=== PATIENT | male | born 1955 | race Caucasian/White ===

== ENCOUNTER 2020-08-20 09:19 | Day surgery (SDC) | payer MEDICARE, SELFPAY ==
--- NOTE | 2020-08-18 13:51 | EKG12_ITS ---
Test Reason : PRE OP Blood Pressure : / mmHG Vent. Rate : 100 BPM Atrial Rate : 100 BPM P-R Int : 152 ms QRS Dur : 094 ms QT Int : 334 ms P-R-T Axes : 035 027 030 degrees QTc Int : 430 ms Normal sinus rhythm Normal ECG Confirmed by DAVID DELGADO, WALDEMAR ([id number]), loan expeditor MAX CENTENO ([id number]) on 08/19/2020 11:21:14 AM Referred By: Raad Pinon Confirmed By:WALDEMAR HERNANDEZ MD
[2020-08-18 14:57] LABS: Hematocrit 45.5 % (40-54); Hemoglobin 14.8 g/dL (13.0-16.5); Mean Corp Hgb Conc 32.5 g/dL (32-36); Mean Corpuscular Hgb 31.2 pg (27.0-32.0); Mean Corpuscular Volume 95.8 fL (80-94); Mean Platelet Vol. 9.6 fl (6.2-12.0); Platelet Count 235 K/mm3 (150-450); RBC Distribution Width CV 11.7 % (11.6-14.6); RBC Distribution Width SD 41.1 fl (35.1-43.9); Red Blood Count 4.75 M/mm3 (4.6-6.2); White Blood Count 8.3 K/mm3 (4.4-11.0)
[2020-08-18 15:13] LABS: Anion Gap 6 (5-15); BUN 12 mg/dL (7-18); BUN/Creat Ratio 10.8 RATIO (10-20); Calcium,Total 9.2 mg/dL (8.5-10.1); Chloride 102 mmol/L (98-107); Creatinine, Serum 1.11 mg/dL (0.70-1.30); EST Glomerular Filtration Rate 71 mL/min (>60); Est Glom Filt Rate - Afr Amer 86 mL/min (>60); Glucose 104 mg/dL (74-106); Potassium 3.4 mmol/L (3.5-5.1); Sodium Level 136 mmol/L (136-145)
[2020-08-20] VITALS (13 sets, daily range): BP systolic 100–129; BP diastolic 65–76; PULSE 76–90; RESP 16–20; TEMP 36.4–37.1; O2SAT 92–97; BMI 28.2
[2020-08-20] MEDS: Lactated Ringers 1,000 ML 100 ML IV ×2 (10:08→13:00)
--- NOTE | 2020-08-20 10:56 | PCM.HP.STD ---
Problem List (1) Urinary retention Status: Acute (2) Urinary retention due to benign prostatic hyperplasia Status: Acute History of Present Illness Date of Admission: 08/20/20 The patient is a 65 year old male who is on maximal medical therapy with Flomax and Proscar. Came into the office because he developed retention of urine despite being on maximal medical therapy had a Tyler catheter placed in the emergency room. On prior cystoscopy was found to have a large obstructive prostate I did not do a cystoscopy in the office prior to this procedure but given his history recommended that we proceed with a transurethral resection of the prostate also do a cystoscopy diagnostic before we do the surgery of the prostate. Past Medical History Allergies No Known Allergies Allergy (Verified 08/20/20 09:46) Home Medications: Ambulatory Orders Medication Instructions Recorded Cephalexin [Keflex] 500 mg PO TID 08/17/20 Finasteride [Proscar] 5 mg PO QHS 08/17/20 Lansoprazole [Prevacid] 30 mg PO DAILY PRN 08/17/20 Meloxicam [Mobic] 15 mg PO DAILY PRN 08/17/20 Tamsulosin HCl [Flomax] 2 tab PO DAILY 08/17/20 traZODone [Desyrel] 50 mg PO QHS PRN 08/17/20 Surgical History: no surgical history Smoking Status: Former smoker Review of Systems Constitutional: Denies: Chills, Fever, Weight Change HEENT: Denies: Head Aches, Sinus Congestion, Sinus Drainage Cardiovascular: Denies: Chest Pain, Palpitations Respiratory: Denies: Cough, Shortness of breath at rest, Sputum production Gastrointestinal: Denies: Abdominal Pain, Nausea, Vomiting Genitourinary: Denies: Dysuria Musculoskeletal: Denies: Joint Pain, Joint Tenderness Skin: Denies: Rash, Wounds Neurological: Denies: Numbness, Tingling, Focal weakness Psychiatric: Denies: Anxiety, Depression, Homicidal Ideations, Suicidal Ideations Hematologic/ Lymphatic: Denies: Easy Bruising, Easy Bleeding VTE Information - Inpt Only VTE Present on Admission: No - Physical Exam Vitals/I&O's: Vital Signs Temp Pulse Resp BP Pulse Ox 98.2 F 84 16 129/76 H 93 08/20/20 10:03 08/20/20 10:03 08/20/20 10:03 08/20/20 10:03 08/20/20 10:03 Oxygen Delivery Method Room Air Weight: 94.5 kg Body Mass Index (BMI) 28.2 General: Alert, Oriented x3, Cooperative HEENT: Atraumatic, PERRLA, EOMI, Normocephalic Neck: Supple, No JVD, Negative Carotid Bruits Lungs: Clear to auscultation, Normal air movement Cardiovascular: Regular rate, No murmurs Abdomen: Bowel Sounds Present, Soft, Non Tender Extremities: No edema, Capillary Refill Less than 3 Seconds Skin: No rashes, No breakdown Musculoskeletal: No Tenderness to Palpation of Joints or Extremities Neurological: Cranial nerves II-XII grossly intact Psych/Mental Status: Normal Affect, Appropriate Microbiology Past 72 Hours 08/18/20 14:06 Interface Orders SARS-CoV-2 Antigen (Rapid) - Final Current Medications Cefazolin Sodium 2 gm/ Sodium (Chloride) 110 mls @ 150 mls/hr IV PREOP ONE Stop: 08/20/20 13:03 Lactated Ringer's () 1,000 mls @ 100 mls/hr IV .Q10H ALEXEY Last Admin: 08/20/20 10:08 Dose: 100 mls/hr Documented by: Assessment/Plan All Active Problems Urinary retention (Acute) Urinary retention due to benign prostatic hyperplasia (Acute) Plan to proceed with transurethral resection of the prostate.
--- NOTE | 2020-08-20 11:07 | DCINST_ITS ---
Discharge Diet: Light diet - advance as tolerated Discharge Activity: May Not Drive Call your doctor if your incision/area has: Sudden Increased Bleeding Call your doctor if you observe: Fever of 101 or Higher Instructions: Transurethral Resection of the Prostate (TURP): Home Recovery Allergies/Adverse Reactions: Allergies No Known Allergies Allergy (Verified 08/20/20 09:46) Medications to take at Discharge Cephalexin [Keflex] 500 mg PO TID 08/17/20 Finasteride [Proscar] 5 mg PO QHS 08/17/20 Lansoprazole [Prevacid] 30 mg PO DAILY PRN 08/17/20 Meloxicam [Mobic] 15 mg PO DAILY PRN 08/17/20 Tamsulosin HCl [Flomax] 2 tab PO DAILY 08/17/20 traZODone [Desyrel] 50 mg PO QHS PRN 08/17/20 Primary Care Physician: Rell Adames DATA COMMUNICATIONS ENGINEER, DATA COMMUNICATIONS ENGINEER-C [Primary Care Provider] - Test Results: Test results from this visit will be discussed in further detail at your follow- up appointment, if applicable. Please Follow Up With: Raad Pinon MD When: in 2 weeks, please call to make an appointment.
[2020-08-20] MEDS: Cefazolin 2 GM in 0.9% Normal Saline 100 ML IV (11:10)
--- NOTE | 2020-08-20 11:42 | PCM.OPRPT ---
Problem List (1) Urinary retention Status: Acute (2) Urinary retention due to benign prostatic hyperplasia Status: Acute Report of Operation Date of Procedure: 08/20/20 Pre-Operative Diagnosis: BPH with obstruction and urinary retention Post-Operative Diagnosis: Same Surgery/Procedure Performed:: Cystoscopy transurethral resection of the prostate. Description of Surgical Findings:: 65-year-old male who I saw in the office because he had gone into retention of urine. He has been on medical therapy with Flomax and Proscar for a long time. After consultation with the patient we recommended we proceed with a transurethral resection of the prostate to try to restore normal voiding. Patient was taken back to the operating room after smooth induction of anesthesia he was placed in dorsolithotomy position the penis and testicles were prepped and draped in usual fashion went into the bladder with a 24 Ethiopian noncontinuous flow resectoscope went the entire length the urethra was normal, the prostatic verumontanum was identified, he had a very short prostate from the verumontanum into the bladder neck with some mild obstruction but surprisingly not very much. Inside the bladder there is some inflammation of the posterior wall from the catheter but no tumors are seen within the bladder, the trigone was normal the left and right ureters were normal. And then switched over to the button resectoscope and I smoothed out the channel way from the verumontanum into the bladder neck but again a very short distance and so had to be very careful and resecting the channel had a nice wide open channel from the verumontanum into the bladder neck this only took about 15 minutes to smooth it out since it was very minimal obstructive tissue surprisingly. After doing resection then no real specimen was obtained. I then did a flow test had a wide open flow sphincter looked intact and healthy. I then put a catheter in her bladder on continuous irrigation of the patient was taken back to PACU in good condition. Type of Anesthesia:: General Drains: [address] - Admit VTE Documentation VTE Present on Admission: No VTE Mechan Device Prophylaxis: SCD's
[2020-08-20] MEDS: Lidocaine 2% Jelly 1 APPLIC Tube TOPICAL (13:30)
[2020-08-20] MEDS: Ibuprofen 600 MG Tablet PO ×2 (13:58→22:53)
[2020-08-20] MEDS: 0.9% Normal Saline 1,000 ML 75 ML IV (14:18)
--- NOTE | 2020-08-20 18:45 | PCS.PANDOC ---
PANDEMIC DOCUMENTATION INITIATED: Date: 08/20/2020 Time: 6268
[2020-08-20] MEDS: Docusate Sodium 100 MG Capsule PO (21:23)
[2020-08-20] MEDS: Finasteride 5 MG Tablet PO (21:24)
[2020-08-20] MEDS: Ciprofloxacin 500 MG Tablet PO (21:24)
[2020-08-20] MEDS: Acetaminophen 325 MG Tablet PO (22:54)
[2020-08-21] MEDS: 0.9% Normal Saline 1,000 ML 75 ML IV (02:36)
[2020-08-21 03:50] VITALS: BP 113/70; PULSE 64; RESP 16; TEMP 36.6; O2SAT 96
--- NOTE | 2020-08-21 06:02 | NURSING ---
CBI clear with no clots, stopped at 0603.
[2020-08-21 06:22] VITALS: TEMP 37
[2020-08-21 08:30] VITALS: RESP 18
[2020-08-21 09:50] VITALS: BP 144/84; PULSE 81; RESP 18; TEMP 36.4; O2SAT 96
[2020-08-21 10:00] VITALS: BP 144/84; PULSE 81; RESP 18; TEMP 36.4; O2SAT 98
[2020-08-21] MEDS: Tamsulosin HCl 0.4 MG Capsule PO (10:47)
[2020-08-21] MEDS: Docusate Sodium 100 MG Capsule PO (10:47)
[2020-08-21] MEDS: Ciprofloxacin 500 MG Tablet PO (10:47)
[2020-08-21 15:23] VITALS: BP 137/80; PULSE 84; RESP 18; TEMP 36.8; O2SAT 98
== END 2020-08-21 14:25 | disposition home or self-care (01) ==
LOC: SDC 09:19 → AC 09:26 → MS3 13:13
PROVIDERS: Anesthesiology; PCP Nurse Practitioner Primary Care; Referring Provider Urology; Visit Provider Urology
PROC: (CPT 52601; principal; 2020-08-20 11:00)
DX: N40.1 Benign prostatic hyperplasia with lower urinary tract symptoms (principal); R33.8 Other retention of urine; Z79.1 Long term (current) use of non-steroidal anti-inflammatories (NSAID); Z87.891 Personal history of nicotine dependence
CPT/HCPCS: 00914; 52601; 36415; 80048; 85027; 87426; 93005; C9803; J7030; J7120; J2405

== ENCOUNTER → 2020-11-12 10:04 | Outpatient (CLI) | payer MEDICARE, SELFPAY ==
[2020-08-20 10:03] VITALS: BMI 28.2
--- NOTE | 2020-11-12 10:09 | STEWCON_ITS ---
Reason For Study: CHEST PAIN Stress Results Protocol: Raad Protocol WITH DEFINITY Maximum Predicted HR: 155 bpm Target HR: 132 bpm % Maximum Predicted HR: 88 % DurationHeart Rate Stage (mm:ss) (bpm) BP Comment BASELINE 75 120/804.5 CC DEFINITY FOR ENTIRE TEST STAGE 1 3:00 103 148/78 STAGE 2 3:00 116 162/80NO CHEST PAIN STAGE 3 2:00 137 164/82INCREASED SOB AND RIGHT HIP DISCOMFORT RECOVERY 92 132/72NO CHEST PAIN Stress Duration: 8:00 mm:ss Maximum Stress HR: 137 bpm METS: 9 Baseline Echocardiogram Findings Stress Echo Wall motion Data Resting WM Intermediate WM Stress WM Resting Wall Motion Wall Motion Stress All segments Normal. All segments Hyperkinetic. Ejection Fraction 55 %. Ejection Fraction 70 %. Stress Results Heart rate response: Appropriate Blood pressure response: Normal resting blood pressure-appropriate response Arrhythmias: None Functional capacity: Good Stopped secondary to: Dyspnea and leg discomfort. EKG Data Baseline ECG: Normal sinus rhythm. Peak exercise ECG: No obvious ECG changes. Symptoms with Stress No complaint of chest discomfort during exercise or recovery. Interpretation Summary Contrast injection performed Negative (adequate) stress echocardiogram Ordering Physician: Addison Crawford Referring Physician: Addison Crawford Performed By: Alex Shepard RCS
== END ==
PROVIDERS: PCP Nurse Practitioner Primary Care; Referring Provider Student in an Organized Health Care Education/Training Program; Visit Provider Student in an Organized Health Care Education/Training Program
DX: R07.9 Chest pain, unspecified (principal); R10.13 Epigastric pain
CPT/HCPCS: 93017; 93350; Q9957; A4216; C8928

== ENCOUNTER 2020-11-16 10:09 | Outpatient (RCR) | payer MEDICARE, SELFPAY ==
[2020-08-20 10:03] VITALS: BMI 28.2
[2020-11-16] MEDS: COVID-19 VACC, MRNA(PFIZER)/PF 30 MCG/0.3 ML SYRINGE IM (17:54)
[2020-12-07] MEDS: COVID-19 VACC, MRNA(PFIZER)/PF 30 MCG/0.3 ML SYRINGE IM (17:35)
== END 2021-02-15 23:59 ==
LOC: IMMUN 10:09
PROVIDERS: PCP Nurse Practitioner Primary Care; Visit Provider Family Medicine
DX: Z23 Encounter for immunization (principal)
CPT/HCPCS: 0001A; 0002A; 91300

== ENCOUNTER 2021-10-29 21:52 | Emergency (ER) | payer MEDICARE, SELFPAY ==
[2021-10-29 21:52] VITALS: BP 157/79; PULSE 92; RESP 18; TEMP 36.1; O2SAT 99; BMI 26.8
--- NOTE | 2021-10-29 22:07 | US_ITS ---
STUDY: SCROTUM ULTRASOUND REASON FOR EXAM: Male, 66 years old. Pain and swelling after trauma TECHNIQUE: Ultrasound evaluation of the scrotum was performed with color Doppler and static rodríguez-scale imaging. COMPARISON: None. FINDINGS: RIGHT TESTICLE INTRATESTICULAR: There is a normal size of the right testicle. The right testicle measures 3.4 x 3.1 x 3.0 cm. There is a homogenous echotexture. There is normal arterial and normal venous vascularity. There is no demonstrated right testicular mass or cyst. EXTRATESTICULAR: The epididymal tail is enlarged. The epididymis head measures 0.7 cm. There is increased (hyperemic) vascularity of the epididymis. There is no demonstrated epididymal cystic structure. There is a small hydrocele. There is no demonstrated varicocele. There is no demonstrated extratesticular mass or cyst. LEFT TESTICLE INTRATESTICULAR: There is a normal size of the left testicle. The left testicle measures 3.0 x 2.7 x 3.1 cm. There is a homogenous echotexture. There is normal arterial and normal venous vascularity. There is no demonstrated left testicular mass or cyst. EXTRATESTICULAR: The epididymis is normal in size. The epididymis head measures 1.5 cm. There is normal vascularity of the epididymis. There is a well-defined cystic structure within the epididymis, without internal echoes, consistent with an epididymal cyst. There is no demonstrated hydrocele. There is no demonstrated varicocele. There is no demonstrated extratesticular mass or cyst. Right inguinal hernia containing bowel identified. US/Testicular with Arterial Flow IMPRESSION: 1. Normal bilateral testicles. 2. Enlargement, heterogeneity and hyperemia of right epididymal tail suggesting epididymitis. 3. Right hydrocele. 4. Right inguinal hernia containing small bowel. Electronically Signed: Mikal Reynolds MD (Brooks) at 23:35 EST Reading Location ID and State: [facility] / [place] , Service support ,
--- NOTE | 2021-10-29 22:10 | EX.ED.GUMALE ---
HPI History of Present Illness Chief Complaint: Male Pain/Injury Detail of Chief Complaint: Scrotal and testicular pain and swelling Informant: patient Pain Onset: Yesterday Context: Sudden Onset Timing: Continuous (Read HPI) Current Severity: Mild Maximum Severity: Severe Worsened by: Movement and palpation Relieved by: Nothing Appearance Lesion(s): No Genital Edema: No Penile Discharge Genital Discharge Amount: None Urinary Symptoms Genitourinary Symptoms: No Symptoms (Patient self caths denies symptoms) Related History Sexually: Active and Single Partner Narrative Narrative: Patient is a 66-year-old male who fell forward landing predominantly on his right side. When he awoke Sunday morning he had bilateral testicular pain and swelling of the testes and scrotum. He was concerned he had a urinary tract infection and brought a specimen to his doctor on Sunday. He did not tell him about the testicular swelling and pain. Patient states he did not seek attention because the left side did resolve. He has persistent pain and swelling of the right testicle. He denies fever, chills or night sweats. He denies nausea or vomiting. He denies blood in his urine. He denies history of STI. Prior similar symptoms: No Recent Illness/Hospitalization: No PFSH PFSH Home Medications cephalexin 500 mg PO TID 08/17/20 [History Last Taken Unknown] finasteride 5 mg PO QHS 08/17/20 [History Last Taken Unknown] lansoprazole 30 mg PO DAILY PRN 08/17/20 [History Last Taken 08/20/20] meloxicam 15 mg PO DAILY PRN 08/17/20 [History Last Taken Unknown] tamsulosin 2 tab PO DAILY 08/17/20 [History Last Taken 08/20/20] trazodone 50 mg PO QHS PRN 08/17/20 [History Last Taken Unknown] hydrocodone-acetaminophen 1 tab PO Q6H PRN PRN 3 Days #10 tablet 10/30/21 [Rx Last Taken Unknown] sulfamethoxazole-trimethoprim 1 tab PO BID #20 tablet 10/30/21 [Rx Last Taken Unknown] Allergy/AdvReac Type Severity Reaction Status Date / Time No Known Allergies Allergy Verified 08/20/20 09:46 Social History (Updated 10/29/21 @ 22:[address] Eduardo Barkley MD) household members: spouse Smoking Status: Former smoker substance use type: does not use ROS ROS ED Constitutional Constitutional ED: Denies chills, fever(s), subjective, sweats or weight loss Eyes Eyes: Denies blurry vision or change in vision ENT ENT ED: Denies ear pain Cardiovascular Cardiovascular: Denies chest pain Respiratory/Chest Respiratory/Chest: Denies cough, dyspnea or dyspnea on exertion Gastrointestinal Gastrointestinal: Denies abdominal pain, diarrhea, nausea or vomiting Genitourinary Genitourinary ED: Reports testicular swelling and other Details: Patient has urinary retention due to benign prostatic hypertrophy and self caths. ; Denies dysuria, hematuria, testicular mass or urinary frequency Musculoskeletal Musculoskeletal: Denies arthralgias, back pain, myalgias or neck pain Integumentary Denies rash Hematologic/Lymphatic Hematologic/Lymphatic: Reports other Details: Patient is not on an anticoagulant. ; Denies easy bleeding or easy bruising EXAM Physical Exam Const Vital Signs: 10/29/21 21:52 10/30/21 00:18 Temperature 97 F L Temperature Source Temporal Pulse Rate 92 78 Respiratory Rate 18 18 Blood Pressure 157/79 H 141/76 H Blood Pressure Mean 105 97 Pulse Ox 99 Oxygen Delivery Method Room Air Positive well nourished and well developed General Appearance ED: well developed and NAD; Negative for pallor HEENT Reports moist mucous membranes normocephalic and atraumatic Eyes PERRL and EOMs intact bilaterally Eyes Narrative: There is no subconjunctival hemorrhage. General Eye ED: Negative for pale conjunctiva or scleral icterus Neck no lymphadenopathy, supple and no JVD Cardio regular rate, regular rhythm, S1 normal heart sound, S2 normal heart sound and no murmurs GI non-tender, non-distended and no masses GI Narrative: Patient has a right inguinal hernia that is easily reducible and is not the cause of his scrotal swelling and pain. Auscultation: normoactive bowel sounds Palpation: soft no CVA tenderness Penis: normal penis and circumcised Meatus: meatus normal Scrotum: testes descended bilaterally, inguinal hernia right, tenderness, erythema right and ecchymosis right; Negative for scrotal swelling or lesions Testes: enlarged testicle(s), testicular swelling, testicular tenderness right and other Patient has an enlarged significantly tender right testicle. There is evidence of ecchymosis to the scrotum on the right side. There was no transillumination of light. ; Negative for testicular mass or blue dot sign Extremity normal to inspection Neuro oriented x3 Sensorium / Orientation: alert Psych mental status grossly normal Skin General Skin Exam: Negative for jaundice or pallor Lesions: no lesions Rashes: no rashes MDM MDM MDM Narrative Medical decision making narrative: Baseline blood work was obtained. UA was obtained. Patient was medicated with Zofran and morphine. Since there is concerned that patient may have a fractured testicle versus traumatic or colitis versus traumatic epididymitis and ultrasound of the scrotum was not obtained. Patient was prescribed nitrofurantoin. Since he has evidence of epididymitis continues to have findings consistent with infection will change antibiotic to Bactrim. He does not have allergy to sulfa. Lab Data Attestation: I reviewed the patient's lab results. Labs: Laboratory Results - last 24 hr 10/29/21 10/29/21 22:18 23:25 Sodium 141 Potassium 3.6 Chloride 108 H Carbon Dioxide 29.0 Anion Gap 4 L BUN 16 Creatinine 1.11 Estim Creat Clear Calc 71.85 Est GFR (MDRD) Af Amer 85 Est GFR (MDRD) Non-Af 70 BUN/Creatinine Ratio 14.4 Glucose 112 H Calcium 9.1 Total Bilirubin 0.30 AST 17 ALT 17 Alkaline Phosphatase 85 Total Protein 7.0 Albumin 3.3 Globulin 3.7 Albumin/Globulin Ratio 0.9 Urine Color Yellow Urine Clarity Sl. Cloudy Urine pH 6.0 Ur Specific Bliss 1.025 Urine Protein 30 H Urine Glucose (UA) Normal Urine Ketones Negative Urine Occult Blood 25 H Urine Nitrite Negative Urine Bilirubin Negative Urine Urobilinogen Normal Ur Leukocyte Esterase 500 H Urine RBC 0-5 SEEN Urine WBC >100 SEEN Ur Squamous Epith Cells 0 SEEN Urine Bacteria 1+ Urine Mucus 0 SEEN Radiography Diagnostic Testing: Clinical Impression(s) from Imaging Studies Testicular Ultrasound 10/29/21 22:07 IMPRESSION: 1. Normal bilateral testicles. 2. Enlargement, heterogeneity and hyperemia of right epididymal tail suggesting epididymitis. 3. Right hydrocele. 4. Right inguinal hernia containing small bowel. Electronically Signed: Mikal Reynolds MD (Brooks) at 23:35 EST Reading Location ID and State: [facility] / [place] , Service support , Discharge Plan Triage Chief Complaint: Male Pain/Injury ED Provider: Eduardo Barkley Dx/Rx/DC Orders Clinical Impression: Complicated urinary tract infection, Acute epididymitis, Right hydrocele, Reducible right inguinal hernia Instructions: ED Epididymitis, ED Hernia (Adult), ED Hydrocele, Type Not Specified, ED Bladder Infection, Male (Adult) Prescriptions: New hydrocodone-acetaminophen [hydrocodone-acetaminophen] 1 TABLET tablet 1 tab PO Q6H PRN PRN (Reason: Pain) 3 Days Qty: 10 RF: 0 sulfamethoxazole-trimethoprim [sulfamethoxazole-trimethoprim] 1 TABLET tablet 1 tab PO BID Qty: 20 RF: 0 No Action trazodone 50 MG tablet 50 mg PO QHS PRN (Reason: Sleep) RF: 0 tamsulosin 0.4 MG capsule 2 tab PO DAILY RF: 0 cephalexin 500 MG capsule 500 mg PO TID RF: 0 lansoprazole 30 MG capsule 30 mg PO DAILY PRN (Reason: reflux) RF: 0 finasteride 5 MG tablet 5 mg PO QHS RF: 0 meloxicam 15 MG tablet 15 mg PO DAILY PRN (Reason: back pain) RF: 0 Primary Care Provider: Addison Crawford Referrals: Addison Crawford DO [Primary Care Provider] - 3-5 Days Disposition Disposition: Home, Self Care
[2021-10-29] MEDS: Ondansetron 4 MG/2 ML Vial IV (22:21)
[2021-10-29] MEDS: Morphine 4 MG/ML Syringe IV (22:21)
[2021-10-29 22:41] LABS: ALB/GLOB Ratio 0.9 RATIO (0.9-2.4); AST(SGOT) 17 U/L (15-37); Alanine Aminotransfer ALT/SGPT 17 U/L (16-61); Albumin, Serum 3.3 g/dL (3.2-5.0); Alkaline Phosphatase 85 U/L (45-117); Anion Gap 4 (5-15); BUN 16 mg/dL (7-18); BUN/Creat Ratio 14.4 RATIO (10-20); Calcium,Total 9.1 mg/dL (8.5-10.1); Chloride 108 mmol/L (98-107); Creatinine, Serum 1.11 mg/dL (0.70-1.30); EST Glomerular Filtration Rate 70 mL/min (>60); Est Glom Filt Rate - Afr Amer 85 mL/min (>60); Estimated Creatinine Clearance 71.85 ml/min; Globulin 3.7 g/dL (2.2-4.2); Glucose 112 mg/dL (74-106); Potassium 3.6 mmol/L (3.5-5.1); Sodium Level 141 mmol/L (136-145)
[2021-10-29 23:29] LABS: Mucous, Urine 0 SEEN /hpf (<or=2+); Squamous Epithelial Cells - UA 0 SEEN /hpf (0-5)
[2021-10-29 23:32] LABS: Color, Urine Yellow (Yellow); Glucose, Dipstick Normal (Normal); Ketone-Dipstick Negative (Negative); Leukocyte Esterase-Dipstick 500 /ul (Negative); Nitrite-Dipstick Negative (Negative); Occult Blood-Urine 25 /ul (Negative); Protein-Dipstick 30 mg/dl (Negative); Specific Gravity, Urine 1.025 (1.002-1.030); Urine Bilirubin Dipstick Negative (Negative); Urine Clarity Sl. Cloudy (Clear); Urine Urobilinogen Normal (Normal)
[2021-10-29 23:38] LABS: White Blood Cells >100 SEEN /hpf (0-5)
[2021-10-29 23:39] LABS: Bacteria 1+ /hpf (None Seen); Red Blood Cells-Urine 0-5 SEEN /hpf (0-5)
[2021-10-30 00:18] VITALS: BP 141/76; PULSE 78; RESP 18
[2021-10-30 00:36] VITALS: BP 141/76; PULSE 78; RESP 18
== END 2021-10-30 00:39 | disposition home or self-care (01) ==
PROVIDERS: Emergency Provider Emergency Medicine; PCP Student in an Organized Health Care Education/Training Program; Visit Provider Emergency Medicine
DX: N39.0 Urinary tract infection, site not specified (principal); K40.90 Unilateral inguinal hernia, without obstruction or gangrene, not specified as recurrent; N45.1 Epididymitis; N50.89 Other specified disorders of the male genital organs; Z87.891 Personal history of nicotine dependence; N50.82 Scrotal pain; N50.811 Right testicular pain
CPT/HCPCS: 76870; 80048; 80053; 81001; 93976; 99284; A4216; J2405

== ENCOUNTER → 2022-10-14 | Outpatient (CLI) | payer MEDICARE, SELFPAY ==
--- NOTE | 2022-10-14 09:01 | CT_ITS ---
EXAM: CT CHEST, LUNG CANCER SCREENING WITHOUT INTRAVENOUS CONTRAST CLINICAL INDICATION: SCREENING TECHNIQUE: Helically acquired images were obtained of the chest without intravenous contrast using low dose (LDCT) lung cancer screening protocol. This CT exam was performed using one or more of the following dose reduction techniques: automated exposure control, adjustment of the mA and/or kV according to patient size, and/or use of iterative reconstruction technique. This report was created using [employer] report generation technology. COMPARISON: None. FINDINGS: LUNGS AND PLEURAL SPACES: Unremarkable. No mass. No consolidation or edema. No pleural effusion or thickening. No pneumothorax. HEART: Unremarkable. Heart size is normal. No pericardial effusion. No significant coronary artery calcifications. MEDIASTINUM: Unremarkable. No mediastinal or hilar adenopathy. Esophagus is unremarkable. No hiatal hernia. THYROID: Unremarkable. No thyroid lesions. BONES/JOINTS: Unremarkable. No suspicious lytic or blastic abnormality. VASCULATURE: Unremarkable. Thoracic aorta is non-dilated. LYMPH NODES: Unremarkable. No enlarged lymph nodes. CT/Low Dose CT Lung Screening IMPRESSION: 1. Lung-RADS score: 1 - Recommend continued annual screening with low-dose CT (LDCT) in 12 months. 2. No acute pulmonary abnormality. Electronically Signed: Arun Fernández MD at 0:04 EST ,
== END | disposition home or self-care (01) ==
LOC: CT 08:59
PROVIDERS: PCP Student in an Organized Health Care Education/Training Program; Visit Provider Student in an Organized Health Care Education/Training Program
DX: Z12.2 Encounter for screening for malignant neoplasm of respiratory organs (principal); Z87.891 Personal history of nicotine dependence
CPT/HCPCS: 71271